=== PATIENT | male | born 1965 | race Caucasian/White ===

== ENCOUNTER 2017-04-16 20:04 | Emergency (ER) | payer OTHER ==
--- NOTE | ~2017-04-16 | EKG ---
PATIENT: ROSALINO JENSEN UNIT #: [id number] Ventricular Rate: 96 BPM Atrial Rate: 96 BPM P-R Interval: 106 ms QRS Duration: 94 ms Q-T Interval: 348 ms QTC Calculation(Bezet): 439 ms P Spade: 31 degrees Calculated R Spade: 58 degrees Calculated T Spade: 17 degrees Diagnosis Line: Sinus rhythm with short FL Diagnosis Line: Otherwise normal ECG Diagnosis Line: When compared with ECG of 16-APR-2017 20:26, Diagnosis Line: (unconfirmed) Diagnosis Line: No significant change was found Diagnosis Line: Confirmed by LESLEE SUTHERLAND MD ([id number]) on Diagnosis Line: 04/17/2017 8:34:39 AM INTERPRETING MD: KOKO GALLAGHER
--- NOTE | ~2017-04-16 | CR72 ---
[facility] A Service of [facility] & [facility] RADIOLOGY TEXT RESULTS PATIENT: ROSALINO JENSEN LOCATION: [facility] : 65 UNIT #: [id number] AGE: [address]: Shari Raymundo MD SEX: M ORDER DR: [id number] [facility] [address] [place], [place] [address] [id number] E MR#: [id number] Acc #: [id number] NAME: ROSALINO JENSEN. : 1965 SEX: M STUDY DATE/TIME: 04/16/2017 21:18 UNIT: [facility] ROOM: STUDY DESCRIPTION: CR Chest Single View Portable Attending Physician: Shari Raymundo M.D. Ordering Physician: Ed Doctor [id number] [facility] Primary Care Physician: Rosalino Barillas M.D. MEDICAL IMAGING REPORT This report is preliminary unless electronic signature is present EXAM Portable chest 04/16 INDICATIONS Cough and wheezing for several days, getting worse. TECHNIQUE AP portable chest compared with 04/16/2017 at 1811 hours. FINDINGS Cardiac and mediastinal contours are normal. Lungs remain clear. No pneumothorax. IMPRESSION No active disease and no change from earlier this evening. Dictated by... Rosalino Davila Jr., M.D. THIS IS AN ELECTRONICALLY VERIFIED REPORT Rosalino Davila Jr., M.D. at 04/17/2017 10:14 AM FRANKO/dyana TD: 04/16/2017 22:08 JOB #: [id number] MEDICAL IMAGING REPORT Page 1 of 1 COPY
--- NOTE | ~2017-04-16 | CT16 ---
[facility] A Service of [facility] RADIOLOGY TEXT RESULTS PATIENT: ROSALINO JENSEN LOCATION: [facility] : 65 UNIT #: [id number] AGE: [address]: Shari Raymundo MD SEX: M ORDER DR: [id number] [facility] [address] [place], [place] [address] [id number] E MR#: [id number] Acc #: [id number] NAME: ROSALINO JENSEN : 1965 SEX: M STUDY DATE/TIME: 04/17/2017 0:50 UNIT: [facility] ROOM: STUDY DESCRIPTION: CT Angio Chest for PE Attending Physician: Shari Raymundo M.D. Ordering Physician: Rory Christianson M.D. Primary Care Physician: Rosalino Barillas M.D. MEDICAL IMAGING REPORT This report is preliminary unless electronic signature is present EXAM CTA chest INDICATION Shortness of air for [address] angiography of the chest with IV contrast. 100 mL Isovue-370 IV contrast was utilized. Coronal 3-D MIP reconstructions and standard sagittal reconstructions were performed. This CT exam was performed with one or more of the following radiation dose reduction techniques: automatic exposure control, adjustment of mA and/or kV according to patient size, and iterative reconstruction. COMPARISON Chest radiograph dated 04/16/2017. FINDINGS No pulmonary embolus. No thoracic aortic aneurysm or dissection. No pericardial or pleural effusion. There is no focal consolidation. Mild bronchial wall thickening be seen in setting of acute or chronic bronchitis. There are a few small pulmonary nodules, however these all measure less than 4 mm. There is abnormal lymphadenopathy in the chest. A right paratracheal lymph node measures 1.1 cm. A right suprahilar lymph node measures 1.5 cm. No pericardial or pleural effusion. There is diffuse hepatic steatosis. There is a benign cyst in the superior right kidney. [facility] Service of [facility] RADIOLOGY TEXT RESULTS PATIENT: ROSALINO JENSEN LOCATION: [facility] : 65 UNIT #: [id number] AGE: [address]: Shari Raymundo MD SEX: M ORDER DR: No acute osseous abnormalities. IMPRESSION 1. Negative for pulmonary embolus. 2. Mild bronchial wall thickening can be seen in the setting of acute or chronic bronchitis. 3. Abnormal mediastinal and hilar lymph nodes. These may be reactive if the patient has symptoms of an acute infection however, I would recommend a precautionary followup study in 3-6 months to further evaluate. 4. There are scattered noncalcified pulmonary nodules. These all measure less than 4 mm in diameter. These are likely benign granulomas. Would recommend these be followed in 12 months to further evaluate. Dictated by... Stuart Narvaez M.D. THIS IS AN ELECTRONICALLY VERIFIED REPORT Stuart Narvaez M.D. at 04/17/2017 4:30 AM SWATHI/denis TD: 04/17/2017 02:18 JOB #: [id number] MEDICAL IMAGING REPORT Page 1 of 1 COPY
[~2017-04-16 20:04] MED LIST: AVANDIA PO; HUMULIN 70/30 V10 ML; LISINOPRIL PO; METFORMIN PO
[2017-04-16 20:56] LABS: BASOPHIL% 0.8 % (0-2.5); DIFF IND NO; EOSINOPHIL# 0.1 X10e3 (0-0.7); EOSINOPHIL% 3.1 % (0.0-7.0); HEMATOCRIT 46.4 % (38.0-50.0); HEMOGLOBIN 15.8 gm/dL (13.0-16.0); LYMPHOCYTE# 1.2 X10e3 (1.0-3.5); LYMPHOCYTE% 26.4 % (17.0-45.0); MEAN CELL VOLUME 89.4 FL (83-96); MEAN CORPUSCULAR HEMOGLOBIN 30.5 PG (28-34); MEAN CORPUSCULAR HGB CONC 34.1 g/dL (30-36); MEAN PLATELET VOLUME 7.5 FL (6.5-11.5); MONOCYTE# 0.8 X10e3 (0-1.0); MONOCYTE% 16.4 % (3.0-12.0); NEUTROPHIL# 2.4 X10e3 (1.5-7.1); NEUTROPHIL% 53.3 % (40-75); PLATELET COUNT 167 X10e3 (140-420); RED BLOOD COUNT 5.18 X10e (3.90-5.60); RED CELL DISTRIBUTION WIDTH 12.7 % (11.0-15.5); WHITE BLOOD COUNT 4.6 X10e3 (4.0-10.5)
[2017-04-16 21:24] LABS: ALBUMIN SERUM 4.3 g/dL (3.5-5.0); BILIRUBIN, DIRECT 0.2 mg/dL (0.0-0.2); BILIRUBIN,INDIRECT 0.4 mg/dL (0.0-0.9); BILIRUBIN,TOTAL 0.6 mg/dL (0.2-2.0); BUN/CREATININE RATIO 13.75; CALCIUM SERUM 8.8 mg/dL (8.4-10.2); CREATININE SERUM 0.8 mg/dL (0.6-1.4); GLOM FILT RATE Estimated 103.5 mL/min (>60)
[2017-04-17 00:05] LABS: PARTIAL THROMBOPLASTIN TIME 28.8 SECONDS (23.5-31.3)
== END 2017-04-17 02:48 | disposition home or self-care (01) ==
LOC: CED 20:04
PROVIDERS: Emergency Medicine
DX: J20.9 Acute bronchitis, unspecified (principal); E11.9 Type 2 diabetes mellitus without complications; I10 Essential (primary) hypertension; J45.909 Unspecified asthma, uncomplicated; Z98.890 Other specified postprocedural states
CPT/HCPCS: 36415; 71010; 71275; 80048; 80076; 83880; 85025; 85610; 85730; 93005; 94644; 96374; 99284; J2930; Q9967